=== PATIENT | female | born 1995 | race Asian ===

== ENCOUNTER 2017-07-10 19:59 | Emergency (ER) | payer OTHER ==
[~2017-07-10] VITALS: Ht 160 cm; Wt 63.1 kg
[2017-07-10] MEDS ORDERED: SODIUM CHLORIDE FLUSH 10ML SYR IVF ONE (21:30)
[2017-07-10] MEDS ORDERED: SODIUM CHLORIDE 0.9% 1,000ML IVBOLUS ONE (21:30)
[2017-07-10 21:44] LABS: BASOPHILS # (AUTO) 0.05 x10^3/uL (0-0.1); BASOPHILS % (AUTO) 1 % (0-1); EOSINOPHILS # (AUTO) 0.02 x10^3/uL (0-0.4); EOSINOPHILS % (AUTO) 0 % (1-7); LYMPHOCYTES # (AUTO) 0.76 x10^3/uL (1-3.4); LYMPHOCYTES % (AUTO) 11 % (22-44); MD NO; MEAN CORPUSCULAR HEMOGLOBIN 26.5 pg (27.0-34.8); MEAN CORPUSCULAR VOLUME 80.4 fL (80-100); MEAN PLATELET VOLUME 7.9 fL (7.4-10.4); MONOCYTES # (AUTO) 0.45 x10^3/uL (0.2-0.8); MONOCYTES % (AUTO) 7 % (2-9); NEUTROPHILS # (AUTO) 5.69 x10^3/uL (1.8-6.8); NEUTROPHILS % (AUTO) 82 % (42-75); PLATELET COUNT 276 x10^3/uL (130-400); RED BLOOD COUNT 4.65 x10^6/uL (3.82-5.3)
[2017-07-10 21:53] LABS: ALBUMIN 3.9 g/dL (3.4-5.0); ANION GAP 9 mmol/L (5-15); CALCIUM 8.7 mg/dL (8.5-10.1); CHLORIDE 104 mmol/L (98-107); CREATININE 0.74 mg/dL (0.55-1.02)
[2017-07-10 22:49] VITALS: BP 110/59
== END 2017-07-10 22:52 | disposition home or self-care (01) ==
LOC: ED 21:34
DX: S00.93XA Contusion of unspecified part of head, initial encounter (principal); R55 Syncope and collapse; X58.XXXA Exposure to other specified factors, initial encounter; Y93.89 Activity, other specified; Y92.89 Other specified places as the place of occurrence of the external cause; Y99.8 Other external cause status
CPT/HCPCS: 36415; 71046; 80048; 82040; 84703; 85025; 85379; 93005; 96360; 99285; J7030

== ENCOUNTER 2019-04-26 22:29 | Emergency (ER) | payer OTHER ==
[~2019-04-26] VITALS: Ht 160 cm; Wt 77.5 kg
--- NOTE | 2019-04-26 23:45 | NUR ---
pt to room from lobby
--- NOTE | 2019-04-26 23:50 | NUR ---
Patient states she had an IUD placed one month ago with spotting since then. It stopped for approximately one week until she experienced low abd pain. Patient has been bleeding since with constant pain. No vaginal discharge. No urinary retention. Patient is not in obvious distress.
[2019-04-27 01:06] LABS: BASOPHILS # (AUTO) 0.06 x10^3/uL (0-0.1); BASOPHILS % (AUTO) 1 % (0-1); EOSINOPHILS % (AUTO) 2 % (1-7); LYMPHOCYTES # (AUTO) 3.12 x10^3/uL (1-3.4); LYMPHOCYTES % (AUTO) 32 % (22-44); MD NO; MEAN CORPUSCULAR HEMOGLOBIN 27.9 pg (27.0-34.8); MEAN CORPUSCULAR HGB CONC 32.4 g/dL (32.4-35.8); MEAN CORPUSCULAR VOLUME 86.2 fL (80-100); MEAN PLATELET VOLUME 7.5 fL (7.4-10.4); MONOCYTES # (AUTO) 0.56 x10^3/uL (0.2-0.8); MONOCYTES % (AUTO) 6 % (2-9); NEUTROPHILS # (AUTO) 5.82 x10^3/uL (1.8-6.8); NEUTROPHILS % (AUTO) 60 % (42-75); PLATELET COUNT 366 x10^3/uL (130-400); RED BLOOD COUNT 4.37 x10^6/uL (3.82-5.3); RED CELL DISTRIBUTION WIDTH 15.7 % (9.6-15.2)
[2019-04-27 01:15] LABS: ALANINE AMINOTRANSFERASE 21 U/L (12-78); ALBUMIN 3.5 g/dL (3.4-5.0); ANION GAP 4 mmol/L (5-15); CALCIUM 8.9 mg/dL (8.5-10.1); CHLORIDE 107 mmol/L (98-107); CREATININE 0.69 mg/dL (0.55-1.02)
[2019-04-27 01:17] LABS: ALKALINE PHOSPHATASE 51 U/L (45-117); BILIRUBIN,TOTAL 0.3 mg/dL (0.2-1.0)
--- NOTE | 2019-04-27 01:38 | NUR ---
Patient resting comfortably; given a cup of water per PA.
[2019-04-27 01:51] LABS: HCG UR SG 1.024 (1.003-1.030); MICROSCOPIC NOT IND
[2019-04-27 01:54] LABS: CULTURE INDICATED? NO
[2019-04-27] MEDS ORDERED: KETOROLAC 30 MG/1 ML ONE (02:15)
[2019-04-27 02:24] VITALS: BP 107/62
[2019-04-27] MEDS ORDERED: KETOROLAC 30 MG/1 ML IM ONE (02:30)
== END 2019-04-27 02:26 | disposition home or self-care (01) ==
LOC: ED 23:58
DX: N94.4 Primary dysmenorrhea (principal)
CPT/HCPCS: 36415; 76830; 80053; 81003; 81025; 85025; 96372; 99284; J1885